=== PATIENT | female | born 1960 | race Caucasian/White ===

== ENCOUNTER → 2023-09-24 13:51 | Outpatient (REF) | payer BC, SELFPAY | LOC: WDC 13:51 | PROVIDERS: ATTENDING PHYSICIAN Nurse Practitioner Family; FAMILY PHYSICIAN Family Medicine | DX: Z12.31 Encounter for screening mammogram for malignant neoplasm of breast (principal) | CPT/HCPCS: 77063; 77067 ==

== ENCOUNTER → 2023-11-19 10:33 | Outpatient (REF) | payer BC, SELFPAY | LOC: RAD 10:33 | PROVIDERS: ATTENDING PHYSICIAN Nurse Practitioner Family; FAMILY PHYSICIAN Family Medicine | DX: M81.8 Other osteoporosis without current pathological fracture (principal) | CPT/HCPCS: 77080 ==

== ENCOUNTER → 2024-01-02 08:43 | Outpatient (REF) | payer BC, SELFPAY | LOC: HWRAD 08:43 | PROVIDERS: ATTENDING PHYSICIAN Nurse Practitioner Family; FAMILY PHYSICIAN Family Medicine | DX: Z01.411 Encounter for gynecological examination (general) (routine) with abnormal findings (principal) | CPT/HCPCS: 76830; 76856 ==

== ENCOUNTER → 2024-01-21 11:41 | Outpatient (REF) | payer BC, SELFPAY | LOC: MRI 3T 11:41 | PROVIDERS: ATTENDING PHYSICIAN Nurse Practitioner Family | DX: R93.89 Abnormal findings on diagnostic imaging of other specified body structures (principal) | CPT/HCPCS: 72197; A9575 ==

== ENCOUNTER → 2024-02-18 14:44 | Outpatient (REF) | payer BC, SELFPAY ==
[2024-02-18 19:11] LABS: CA 125 5.6 U/mL (0-35)
== END ==
LOC: OIDL 14:44
PROVIDERS: ATTENDING PHYSICIAN Obstetrics & Gynecology Gynecologic Oncology
DX: C43.9 Malignant melanoma of skin, unspecified (principal)
CPT/HCPCS: 82378; 86304

== ENCOUNTER 2024-05-13 06:22 | Day surgery (SDC) | payer BC, SELFPAY ==
[2024-05-09 08:59] LABS: % Basophils 1.3 % (0-2); % Eosinophils 2.8 % (0-6); % Immature Granulocytes 0.4 % (0-0.5); % Lymphocytes 26.1 % (20.5-51.1); % Monocytes 9.1 % (1.7-9.3); % Neutrophils 60.3 % (42.2-75.2); Absolute Basophils 0.1 10^3/uL (0-0.2); Absolute Eosinophils 0.2 10^3/uL (0-0.7); Absolute Lymphocytes 1.4 10^3/uL (1.2-3.4); Absolute Monocytes 0.5 10^3/uL (0.1-0.6); Absolute Neutrophils 3.2 10^3/uL (1.4-6.5); Hematocrit 39.2 % (37.0-47.0); Hemoglobin 13.4 g/dL (12.0-16.0); Mean Corp Hgb Conc. 34.2 g/dL (33.0-37.0); Mean Corpuscular Volume 99.5 fL (81.0-99.0); Mean Platelet Volume 9.4 fL (7.4-10.4); Nucleated Red Blood Cells % 0 %; Platelet Count 259 10^3/uL (130-400); Red Blood Cell Count 3.94 10^6/uL (4.20-5.40); White Blood Cell Count 5.3 10^3/uL (4.8-10.8)
[2024-05-09 09:13] VITALS: BMI 20.7
[2024-05-09 09:31] LABS: ALT (SGPT) 33 U/L (0-35); AST (SGOT) 36 U/L (14-36); Albumin 4.3 g/dl (3.5-5.0); Alkaline Phosphatase 45 U/L (38-126); Blood Urea Nitrogen 19 mg/dl (7-17); Calcium 9.6 mg/dl (8.4-10.2); Carbon Dioxide 28 mmol/L (22-30); Chloride 101 mmol/L (98-107); Estimated Creatinine Clearance 70 ml/min; Glucose 82 mg/dl (70-99); Potassium 4.1 mmol/L (3.5-5.1); Sodium 141 mmol/L (135-145); Total Bilirubin 0.5 mg/dl (0.2-1.3); Total Protein 6.9 g/dl (6.3-8.2); eGFR > 60.00
--- NOTE | 2024-05-11 09:25 | HPS.HSE ---
Family Physician
-
Family Physician: Roverto Watson
Chief Complaint
-
thickened endocervix
History of Present Illness
Patient�was�referred�by�Dr.�Defour�for�evaluation.�She�is�a�63�year�old�G0�white�female�has�a�prior�history�of�cervical�cryotherapy
many�years�ago.�During�the�recent�visit�comments�were�made�that�her�cervix�is�a�different�color�compared�to�the�remainder�of�the
upper�vagina.�Patient�does�have�a�Pap�smear�March�which�was�negative�for�intraepithelial�lesion�or�malignancy�high�risk�HPV�test was�negative.An�ultrasound�was�obtained�as�part�of�the�evaluation.�On�RYLEY�2,�UTERUS�IS�RETROVERTED�MEASURING
5.7�CM,�NONVASCULAR�13�nodular�density�at�the�cervix�which�may�be�BENIGN�OR�MALIGNANT.�right�ovary�measures�2.1�cm.�In order�to�further�explore�the�abnormality�noted�at�the�cervix�MRI�was�recommended.�MRI�of�the�pelvis�was�performed�dated�Sophy�15,
2023,�uterus�is�5.4�cm�size,�there�is�no�abnormal�thickening�of�endometrium.�There�is�thickening�of�the�endocervical�lining
measuring�1�x�1.1�x�2.2�cm�in�size.�Left�ovary�1.5�x�2�cm�well�circumscribed�mass,�suggestive�of�an�endometrioma�or�hemorrhagic cyst.�
Past�medical�history�includes�melanoma,�lower�extremity�multiple�orthopedic�injuries�and�surgeries.�Hypothyroidism�and osteoporosis
Past�surgical�history�includes�3�prior�spine�surgeries�at�L4�L5�S1�level,�bilateral�feet�surgeries�including�placement�of�plates�and screws�and�removal�of�them.�Status�post�right�inguinal�hernia�repair
Family�history�significant�for�paternal�grandmother�and�great�aunt�both�with�breast�cancer�in�50s,�maternal�grandfather�with�colon cancer. Medications�include�[place]�Thyroid,�hydrochlorothiazide,�DHEA,�calcium,�vitamin�C
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
Routine�health�maintenance,�has�had�a�colonoscopy�4�years�ago,�had�a�mammogram�in�March�of�this�year.
Medical History
Past Medical History
Past Medical History: Reports None
Past Surgical History: Reports None
Social History
Tobacco: Non-smoker
Alcohol: None
Drug: None
Family History
Family History: Not pertinent
Allergies / Home Medications
Allergies reflects when Allergies were last updated in [employer].
Home Medications with original date entered in [employer]
Allergy/Medication List:
codeine, surgical tape
Review of Systems
-
A 12 point ROS was completed and negative except as noted: Yes
Physical Exam
Vital Signs
Physical�Exam
Pelvic�Examination: External�normal�labia,�urethra,�anus.� Vagina:�Normal�mucosa.
Cervix:�devitaed�to�right�pelvis�normal�appearance,�nulliparous,�no�lesions.�os�closed�or�stenotic�no�discharge.� Uterus:�normal�size,�small,�.� Adnexa:�No�pelvic�mass.� RVE:�no�masses�or�nodularity
General:�Well�developed,�well�nourished�patient.�In�no�acute�distress.
Head:�Atraumatic�and�normocephalic.
Neck:�No�thyromegaly.�No�cervical�lymphadenopathy.
Lungs:�Clear�to�auscultation.�Good�air�movement�bilaterally.
Cardiac:�Regular�rate.�Regular�rhythm.�No�murmurs�appreciated.
Right�Breast:�No�masses�or�dimpling.�No�nipple�discharge.
Left�Breast:�No�masses�or�dimpling.�No�nipple�discharge.
Abdomen:�Abdomen�is�soft.�Non�tender�to�palpation.�Non�distended. palpable�mesh�in�right�groin�area
Extremities:�No�edema. Hematologic/Lymphatic:�No�palpable�lymphadenopathy. Musculoskeletal:�Normal�range�of�motion.�Strength�and�Tone�are�normal.
Skin:Non�jaundiced.�No�petechia.�No�purpura.
Neurologic:�Speech�is�fluent.�Normal�gait�and�station.�Cranial�nerves�intact.
Physical Exam
General: Well Developed
Laboratory Results
-
05/09/24 07:47
05/09/24 07:47
Laboratory Results
Total Bilirubin 0.5 mg/dl (0.2-1.3) 05/09/24 07:47
AST 36 U/L (14-36) 05/09/24 07:47
ALT 33 U/L (0-35) 05/09/24 07:47
Alkaline Phosphatase 45 U/L (38-126) 05/09/24 07:47
Impression/Plan
-
IMPRESSION:
I spoke with the patient and her , I personally reviewed the images of her ultrasound as well as MRI and reviewed it with
them.
1. Endocervical thickening:
There is slight discoloration of her cervix is likely due to prior history of cryotherapy. Given the fact that her Pap smear shows
cytology negative HPV negative status likely would have significant concern for cervical cancer is extremely small and probably nil
She has normal endometrial thickness but thickening in the endocervical canal is somewhat without explanation and possibility of
having a benign endocervical canal cannot be excluded. It is also possible that due to cervical stenosis there is trapped mucus in
there.
Next best step for evaluation is exam under anesthesia, is small LEEP procedure to remove the scarred os and then dilation of the
cervix with a plan to perform endocervical curetting. This will be scheduled in the near future for the patient as she is preparing for a
trip to [place] with her for a wedding.
Risk of procedure including infection bleeding adjacent organs, DVT and cardiovascular complications were reviewed
My suspicion is that the results will return as benign
PLAN:
[2024-05-13] VITALS (11 sets, daily range): BP systolic 112–118; BP diastolic 57–88; BMI 20.7
[2024-05-13] MEDS: HEPARIN 5000 UNITS SC (09:10)
[2024-05-13] MEDS: CELEBREX 200 MG PO (09:10)
[2024-05-13] MEDS: TYLENOL 1000 MG PO (09:10)
[2024-05-13] MEDS: NEURONTIN 300 MG PO (09:11)
--- NOTE | 2024-05-13 12:15 | OR.RPT ---
Operative Report
Operative Report
Date of procedure: May 13, 2024
Preoperative diagnosis: Thickening of the endocervix as per MRI and ultrasound, cervical stenosis causing inability to sample tissue in the office
Postop diagnosis pending final pathology
Procedure: Exam under anesthesia, LEEP procedure, endocervical curettage, dilation and curettage
Surgeon: True Duckworth MD
Assist: Latonya Jefferson PA-C
Anesthesia: General LMA intubation
Estimated blood loss: 5 cc
Complication: None
Procedure in detail and findings: This patient was brought to the operating room for evaluation of endocervical canal. The patient has had a pelvic ultrasound which revealed thickening of endocervix and this was evaluated by MRI which suggest a
area of 1 x 2 cm thickening of endocervical canal. She has cervical stenosis and cervical canal cannot be accessed in the outpatient setting. She was placed under general anesthesia in supine position, she was placed in lithotomy position and
prepped on the abdomen perineum and vagina she was draped. Timeout procedure was carried out and she received prophylactic antibiotic. Toussaint retractor was used to retract the posterior vaginal wall and narrow Sofiya was used to elevate the bladder,
anterior lip of the cervix was grasped with single-tooth tenaculum. Paracervical block was administered with 1% lidocaine total 10 cc injected equally at the 5 and 7:00 paracervical location. I used a 10 mm LEEP to excise the exocervix and hence
be able to find the cervical os. This tissue was submitted to pathology cervical canal was probed and eventually identified, I was able to cannulate the endometrial cavity which sounded to 5 cm. It was slightly posteriorly deviated. The canal was
dilated to 7 to 8 mm. Sharp curettage of the endocervix was performed and tissue was submitted as ECC to pathology. Sharp curettage of the endometrium was also performed as well as sampling with a Pipelle instrument and this was submitted as [facility].
Monsel solution was applied to the cervix after rollerball cautery of the exocervix was performed. All excess Monsel solution was removed. Procedure was completed, the patient was awakened extubated and returned back to recovery room stable awake
and extubated condition. I did not find the exact etiology for cervical stenosis but do suspect that trapped mucus might have been the cause of the tissue described in the imaging studies. Counts of laps instruments and needle was correct x 2 I
was present and scrubbed for entire procedure as dictated above.
Disposition: To PACU, extubated
== END 2024-05-13 13:58 | disposition home or self-care (01) ==
LOC: SDS 06:22
PROVIDERS: ATTENDING PHYSICIAN Obstetrics & Gynecology Gynecologic Oncology; FAMILY PHYSICIAN Family Medicine; REFERRING PHYSICIAN Obstetrics & Gynecology
DX: N88.2 Stricture and stenosis of cervix uteri (principal); R93.5 Abnormal findings on diagnostic imaging of other abdominal regions, including retroperitoneum
CPT/HCPCS: 58558; 88305; 88307; 36415; 80053; 85025; 86850; 86900; 86901; 88341; 88342; 93005

== ENCOUNTER → 2024-08-14 12:56 | Outpatient (REF) | payer BC, SELFPAY | LOC: MRI 3T 12:56 | PROVIDERS: ATTENDING PHYSICIAN Obstetrics & Gynecology Gynecologic Oncology | DX: N88.2 Stricture and stenosis of cervix uteri (principal); R19.04 Left lower quadrant abdominal swelling, mass and lump; R93.5 Abnormal findings on diagnostic imaging of other abdominal regions, including retroperitoneum; C43.9 Malignant melanoma of skin, unspecified | CPT/HCPCS: 72197; A9575 ==

== ENCOUNTER → 2024-09-24 14:36 | Outpatient (REF) | payer BC, SELFPAY | LOC: WDC 14:36 | PROVIDERS: ATTENDING PHYSICIAN Nurse Practitioner Family; FAMILY PHYSICIAN Family Medicine | DX: Z12.31 Encounter for screening mammogram for malignant neoplasm of breast (principal) | CPT/HCPCS: 77063; 77067 ==

== ENCOUNTER → 2024-10-08 08:30 | Outpatient (REF) | payer BC, SELFPAY | LOC: PET 08:30 | PROVIDERS: ATTENDING PHYSICIAN Obstetrics & Gynecology Gynecologic Oncology | DX: C43.61 Malignant melanoma of right upper limb, including shoulder (principal) | CPT/HCPCS: 78816; A9552 ==

== ENCOUNTER 2024-11-11 06:16 | Day surgery (SDC) | payer BC, SELFPAY ==
[2024-10-29 14:13] VITALS: BMI 20.2
--- NOTE | 2024-11-07 14:08 | PTCARENOTE ---
Patients 11/ ECG abnormal- reviewed by Dr. Atkins- no additional interventions indicated
--- NOTE | 2024-11-09 08:32 | W.CON.GYNONC ---
Chief Complaint
-
N/A
History of Present Illness
She is a 63�year�old G0 white female has a prior history of cervical cryotherapy
many years ago. During the recent visit comments were made that her cervix is a different color compared to the remainder of the
upper vagina. Patient does have a Pap smear September which was negative for intraepithelial lesion or malignancy high risk HPV test
was negative.An ultrasound was obtained as part of the evaluation. On JANUARY 02, 2024, UTERUS IS RETROVERTED MEASURING
5.7 CM, NONVASCULAR 13 nodular density at the cervix which may be BENIGN OR MALIGNANT. right ovary measures 2.1 cm. In
order to further explore the abnormality noted at the cervix MRI was recommended. MRI of the pelvis was performed dated January 20,
2023, uterus is 5.4 cm size, there is no abnormal thickening of endometrium. There is thickening of the endocervical lining
measuring 1 x 1.1 x 2.2 cm in size. Left ovary 1.5 x 2 cm well�circumscribed mass, suggestive of an endometrioma or hemorrhagic
cyst. she did undergo LEEP, ECC, D&D in 05/2024
A. Cervix (LEEP biopsy):
Benign cervix (no dysplasia).
B. Endocervical curettings:
Mucin and blood with free-floating clumps of squamous cells.
No dysplasia identified; see note.
C. Endometrial curettings:
Abundant mucin, blood and minute strips of benign endometrial and squamous cells.
No atypia;
Past medical history includes melanoma, lower extremity multiple orthopedic injuries and surgeries. Hypothyroidism and
osteoporosis
Past surgical history includes 3 prior spine surgeries at L4 L5�S1 level, bilateral feet surgeries including placement of plates and
screws and removal of them. Status post right inguinal hernia repair
Family history significant for paternal grandmother and great aunt both with breast cancer in 50s, maternal grandfather with colon
cancer.
Medications include [place] Thyroid, hydrochlorothiazide, DHEA, calcium, vitamin C
Allergies include: Codeine surgical tape
Social history includes , continues to work as president of [employer], drinks 2 glasses of wine per day, has
never used tobacco, denies drug use or marijuana.
Routine health maintenance, has had a colonoscopy 4 years ago, had a mammogram in September of this year
Medical History
Allergies
Allergies reflect when allergies were last updated in [employer].
adhesive tape Allergy (Verified 10/30/24 12:49)
Rash
gluten Allergy (Verified 10/30/24 12:49)
GI upset
codeine Adverse Reaction (Verified 10/30/24 12:49)
Nausea / Vomiting
Physical Exam
Physical Exam
Physical Exam
Pelvic Examination:
External normal labia, urethra, anus.
Vagina: Normal mucosa.
Cervix: Cervical os is patent, brush was inserted.
Uterus: normal size, small, .
Adnexa: No pelvic mass.
RVE: no masses or nodularity
General: Well developed, well nourished patient. In no acute distress.
Head: Atraumatic and normocephalic.
Neck: No thyromegaly. No cervical lymphadenopathy.
Lungs: Clear to auscultation. Good air movement bilaterally.
Abdomen: Abdomen is soft. Non�tender to palpation. Non�distended.
Extremities: No edema.
Hematologic/Lymphatic: No palpable lymphadenopathy.
Musculoskeletal: Normal range of motion. Strength and Tone are normal.
Skin:Non�jaundiced. No petechia. No purpura.
Results
-
Magnetic Resonance Imaging Rpt
SignedOrder #:[id number]
Exams: MR Pelvis W/o & With Contrast
CPT: 77535
PROCEDURE: MR Pelvis W/o  With Contrast
CLINICAL INDICATION: Follow-up endocervical mass. Stricture and stenosis of the cervix. Left lower quadrant abdominal swelling, mass and lump. Abnormal findings on diagnostic imaging of other abdominal regions including the retroperitoneum.
Malignant melanoma of the skin.
TECHNIQUE: An MRI examination of the pelvis was performed with and without intravenous contrast on a 3.0 Rebeca magnet. Sagittal T2, sagittal T1 fat-suppressed, oblique axial T1, oblique axial T2 fat-suppressed, oblique coronal T2 fat-suppressed,
oblique axial mDixon fat-suppressed imaging sequences were obtained prior to the administration of intravenous contrast. Following the intravenous administration of 12 mL Clariscan gadolinium contrast material, oblique axial fat suppressed mDixon
and sagittal T1 fat-suppressed imaging sequences were obtained. Oblique axial subtraction images were obtained postcontrast.
COMPARISON: Comparison is made with a prior MRI examination of the pelvis performed 01/21/2024.
FINDINGS:
UTERUS: The uterus is retroverted. The uterus is small in size. There is no MRI evidence for abnormal endometrial thickening. There is circumferential thickening of the cervix measuring 2.9 x 1.9 cm in craniocaudal and transverse dimensions. The
center of the cervix contains mildly hyperintense T1 and heterogeneous T2 signal, some of which demonstrates enhancement following the administration intravenous contrast. There is no MRI evidence for extra cervical mass.
RIGHT OVARY: There is no evidence for right ovarian cyst or solid mass.
LEFT OVARY: There are 1.8 cm and 1.1 cm cyst in the left ovary there is a 4 mm focus of low T2 signal in the larger 1.8 cm cyst.
The urinary bladder appears normal. There is no peritoneal fluid or lymphadenopathy in the pelvis. There is mild diffuse fluid distention of small bowel loops. There is a large amount of fecal material in the cecum and ascending colon. There is a
moderate amount of fecal material in the sigmoid colon and rectum.
SKELETON: There is a 3.0 x 1.3 cm intramedullary lesion in the posterior superior right iliac bone which has a rim of low T1 and low T2 signal and centrally contains mixed hyperintense T1 and low T1 signal. There is a small amount of central
hyperintense T2 signal intensity in the lesion. This lesion does not demonstrate enhancement following the administration of intravenous contrast.
There is severe discogenic degenerative disease at L3/L4 with severe loss of intervertebral disc space height and a moderate amount of adjacent enhancing endplate bone marrow edema. There is bilateral posterolateral osseous fusion at L4/L5 and
L5/S1. There is a 9.4 mm perineural Tarlov cyst in the central sacral spinal canal at the S2 level. There is susceptibility artifact in the posterior soft tissues of the lower back at the site of previous spinal fusion surgery.
There is mild subchondral bone marrow edema in the anterior right acetabular roof. There are small bilateral femoral head and acetabular osteophytes. There are small bilateral hip joint effusions.
IMPRESSION:
1. Thickened endocervical lining which appears unchanged.
2. No MRI evidence for cervical or uterine mass.
3. 1.8 cm and 1.1 cm benign-appearing cysts in the left ovary.
4. Large amount of fecal material throughout the colon.
5. Severe discogenic degenerative disease at L3/L4 with adjacent severe enhancing endplate bone marrow edema.
6. Bilateral posterior osseous fusion at L4/L5 and L5/S1.
Electronically signed by Mateusz Cross MD, 08/14/2024 4:22 PM
Dictated By: America HOFFMAN,Mateusz Portillo.
Dictated Date & Time: 08/14/24 1501
PET Scan Report
SignedOrder #:[id number]
Exams: PT Pet Wbi W/CT Whole Body
CPT: [id number]
Procedure: PT Pet Wbi W/CT Whole Body
IMPRESSION:
1. Elevated asymmetric FDG uptake in the left palatine tonsil. Diagnostic possibilities are (1) squamous cell carcinoma, (2) infectious tonsillitis, or (3) asymmetric physiologic uptake.
2. Chronic granulomatous disease infection in the chest.
3. Previous circumferential spinal fusion at L4/L5 and L5/S1.
CLINICAL INDICATION: 64-year-old woman with malignant melanoma of the right upper limb (right biceps) and cervical cancer. Previous right inguinal hernia repair. The patient is undergoing a PET/CT examination for restaging (subsequent treatment
strategy)..
TECHNIQUE: A whole body PET/CT examination was performed following the intravenous injection of 9.3 mCi F-18 FDG in the left antecubital fossa at 8:54 AM on 10/08/2024. Images were acquired from the level of the top of the skull to the level of the
bottom of the feet. The blood glucose level at the time of injection measured 87 mg/dL. The radiopharmaceutical uptake time measures 69 minutes. Axial, sagittal, and coronal fused reformatted images were obtained. Low-dose CT images were acquired
for attenuation correction purposes only. Automatic exposure control radiation dose reduction technology was utilized.
SUV Measurement Type: SUVmax
Normalization Method: BMI
COMPARISON: Comparison is made with an MRI examination of the pelvis performed 08/14/2024.
FINDINGS:
HEAD and NECK:
There is asymmetric enlargement of the left palatine tonsil in the oropharynx demonstrating asymmetric increased radiopharmaceutical activity (SUV max 11.8). The right palatine tonsil measures SUV max 5.4. There is no abnormal increased FDG uptake
in cervical lymph nodes.
CHEST:
MEDIASTINUM: Mediastinal Blood Pool Reference Background Measurement: SUV max 2.41
The heart is normal in size. There is no calcification in the aortic valve. There is no calcific atherosclerotic plaque in the coronary arteries. There are heavily calcified left subaortic and left hilar lymph nodes consistent with chronic
granulomatous disease infection. There is no abnormal increased FDG uptake in mediastinal, hilar, supraclavicular, or axillary lymph nodes to suggest FDG avid liam metastatic disease.
LUNGS: There is a 6 mm calcified pulmonary granuloma in the left upper lobe superior to the left hilum. There is a mild amount of subpleural ground-glass opacity in the basilar segments of the lower lobes of both lungs consistent with mild
subsegmental atelectasis and scarring. There is no evidence for abnormal increased FDG uptake in the lungs to suggest FDG avid pulmonary metastatic disease. There is no pleural effusion or pneumothorax.
ABDOMEN and PELVIS: Liver Reference Background Measurement: SUV max 3.03
There is a 1.1 cm gallstone in the gallbladder lumen. The gallbladder is mildly distended. There is a 4.2 x 4.8 cm cyst exophytic from the lateral cortex of the upper pole of the left kidney. There is a moderate amount of fecal material throughout
the colon. There is moderate diverticulosis in the ascending colon. There is no ascites.
There is no abnormal increased FDG uptake in the cervix or uterus to suggest FDG avid malignancy. There is no abnormal increased FDG uptake in abdominal or pelvic lymph nodes to suggest FDG avid liam metastatic disease.
SKELETON:
There is moderate discogenic degenerative disease at L2/L3 and L3/L4. There has been circumferential fusion at L4/L5 and L5/S1.
EXTREMITIES:
There is no evidence for focal increased FDG uptake in the extremities to suggest FDG avid malignancy.
Electronically signed by Mateusz Cross MD, 10/08/2024 5:19 PM
Impression / Plan
-
I spoke with the patient and her , I personally reviewed the images of her ultrasound as well as MRI and reviewed it with
them.
1. Endocervical thickening:
Based on my evaluation so far I do not see any evidence of abnormality or dysplasia in the specimens.
She had a PET CT scan to see whether there is any PET avid activity in the cervix. There was no PET avid activity, She has prior
history of melanoma, explained to her therapy endocervical thickening described. Circumferential,
Usual the nature of it is unclear to me at this point.
2. Left Ovary mass: MRI shows Left ovary 1.5 x 2 cm well�circumscribed mass, suggestive of an endometrioma or hemorrhagic
cyst. Repeat MRI shows: 1.8 cm and 1.1 cm benign�appearing cysts in the left ovary. Stable unchanged.
Given persistent abnormalities I am recommending definitive management, including robotic TLH BSO. risks including infection, bleeding, injury to adjacent organs, DVT/PE and need for additional treatment discussed.
[2024-11-11] VITALS (13 sets, daily range): BP systolic 98–143; BP diastolic 62–78; BMI 20.2
[2024-11-11] MEDS: NORMOSOL-R/PLASMALYTE-A 1000 IV (11:34)
[2024-11-11] MEDS: CELEBREX 200 MG PO (11:43)
[2024-11-11] MEDS: EMEND 40 MG PO (11:45)
[2024-11-11] MEDS: NEURONTIN 300 MG PO (11:45)
[2024-11-11] MEDS: HEPARIN 5000 UNITS SC (11:45)
[2024-11-11] MEDS: TYLENOL 1000 MG PO (11:45)
--- NOTE | 2024-11-11 13:54 | OR.RPT ---
Operative Report
Operative Report
Date of procedure: November 11, 2024
Primary Surgeon: True Duckworth
Assisting Surgeon: Shawnee Jefferson PA-C
The assistance of Carlotta Jefferson was required due to the complexity of the procedure. During the procedure Carlotta Jefferson assisted with retraction, resection, and closure of the wound.
Pre-op Diagnosis: Unexplained Cervix mass
Post-op Diagnosis: same pending final pathology
Procedure Performed:
Robotic assisted total laparoscopic hysterectomy, bilateral salpingo-oophorectomy
TAP block
Anesthesia Type: General ET
Specimen / Cultures: Uterus, cervix, R & L tubes and ovaries, right and left external iliac sentinel lymph nodes, posterior cul-de-sac and left anterior abdominal wall implant
Estimated Blood Loss: 50
Complications: none
Operative Findings: Uterus and cervix appears within normal limits, left benign paraovarian cyst present, right tube and ovary are benign appearing. Appendix is unremarkable upper abdomen including omentum stomach liver gallbladder right and left
diaphragms and spleen appear normal, retroperitoneal spaces in the pelvis did not demonstrate any abnormal findings.
PROCEDURE IN DETAIL: This patient was taken to the operating room and placed in a supine position. General anesthesia was administered. She was intubated without any difficulty. She was placed in lithotomy position using Yellofin stirrups. Arms
were wrapped in place along the patient's side and all joints were attended to ensure lack of any pressure on any upper or lower extremity. The patient was prepped on the abdomen, perineum, and
vagina. Kwong catheter was inserted under sterile conditions in the bladder. The patent was draped. Timeout procedure was completed. She received appropriate antibiotics preoperatively. After dilation of the cervical canal which sounded to 8 cm,
uterine manipulator weasand trimmer type was placed in the uterus with a 2.5 cm VILMA ring. Vaginal cuff occluder was insufflated.
Veress needle was inserted just below left subcostal margin and pneumoperitoneum was created up to pressure of 15 mmHg. 8 mm robotic port was inserted 22 cm cephalad to symphysis pubis into the peritoneal cavity. A survey of the upper abdomen
reveals liver, stomach, diaphragms, right and left pericolic gutters to be within normal limits. Under direct visualization, TAP block was injected with Ropivacaine and Decadron mixture equally distributed 2 fingerbreadths along the lateral aspect
of right and left subcostal margins just above the peritoneum, but below the muscle. Once this was completed, right and left upper quadrant XI robotic ports were placed and right and left XI robotic ports were placed in the lateral abdomen. The
patient was placed in 28 degree Trendelenburg.
The robotic system was docked. Right and left round ligaments were sealed and divided. Anterior and posterior leaves of the broad ligament was dissected open. The course of the ureters were identified bilaterally and a window was created between IP
ligaments and ureters. Both IP ligaments were isolated and sealed 3 times and divided. Tubes and ovaries were left attached to the uterus.
Retroperitoneal spaces were opened including paravesical and paracervical spaces. Next, bladder flap was sharply developed and advanced below the cervicovaginal junction. Both uterine arteries were skeletonized. Uterine vessels followed by any
additional cardinal ligaments followed by uterosacral ligaments were sealed 3 times and divided. paracervical and uterosacral ligament were sealed and divided. Circumferential incision was made around the Vilma ring until the specimen was completely
detached. Uterus, cervix, bilateral tubes, and ovaries were removed through the vagina and submitted to pathology. The vaginal apex was closed with 0-Vicryl suture and ligature in a Figure-of-8 fashion at both apices. Following this, V-Loc suture
was used to close the vaginal cuff starting from right to the left side and back to the right side in 2 layers. We irrigated the pelvis and there was no evidence of bleeding. We inspected the vagina and there was no evidence of lacerations. All
ports were removed and pneumoperitoneum was released. The fascia for all the ports were not closed because they were 8 mm each in size. Skin incisions were closed with 4-0 Monocryl in a subcuticular fashion.
The patient was awakened, extubated, and returned back to recovery room in stable, awake, and extubated condition. Counts of laps, instruments, and needle was correct x2. I was present and scrubbed for the entire procedure as dictated above.
DISPOSITION: To PACU, stable, awake, and extubated.
[2024-11-11] MEDS: DILAUDID 0.5 MG IV (14:36)
[2024-11-11] MEDS: ZOFRAN 4 MG IV (14:47)
[2024-11-11] MEDS: COMPAZINE 5 MG IV (16:59)
== END 2024-11-11 17:45 | disposition home or self-care (01) ==
LOC: SDS 06:16
PROVIDERS: ATTENDING PHYSICIAN Obstetrics & Gynecology Gynecologic Oncology; FAMILY PHYSICIAN Family Medicine
DX: N80.03 Adenomyosis of the uterus (principal); N83.292 Other ovarian cyst, left side; N83.291 Other ovarian cyst, right side; N83.8 Other noninflammatory disorders of ovary, fallopian tube and broad ligament; N93.8 Other specified abnormal uterine and vaginal bleeding
CPT/HCPCS: 58571; 88307; 36415; 86850; 86900; 86901; 93005